=== PATIENT | male | born 1990 | race Caucasian/White ===

== ENCOUNTER 2018-04-25 05:23 | Inpatient (IN) | payer OTHER ==
[2018-04-25] MEDS ORDERED: ONDANSETRON 4 MG INJ IV (07:30)
[2018-04-25] MEDS ORDERED: ACETAMINOPHEN 325 MG TAB PO (07:30)
[2018-04-25] MEDS: CEFTRIAXONE 1 GM/50 ML (PMX) 50 ML IVPB (08:29)
[2018-04-25] MEDS: PANTOPRAZOLE 40 MG INJ IV (08:29)
[2018-04-25] MEDS: DEXTROSE 5%-0.45% NACL 1,000 ML IV (08:29)
[2018-04-25 11:39] LABS: ADD MAN DIFF? NO
[2018-04-25 11:43] LABS: WHITE BLOOD COUNT 11.4 10^3/ul (4.8-10.8)
[2018-04-25 11:43] LABS: BASOPHIL # 0.1 10^3/ul (0.0-0.1); BASOPHILS % 0.4 % (0.0-2.0); EOSINOPHILS # 0.2 10^3/ul (0.0-0.5); EOSINOPHILS % 1.9 % (0.0-7.0); HEMATOCRIT 42.6 % (42.0-52.0); LYMPHOCYTES % 26.8 % (15.0-51.0); MEAN CORPUSCULAR HEMOGLOBIN 28.1 pg (29.0-33.0); MEAN CORPUSCULAR HGB CONC 32.9 g/dl (32.0-37.0); MEAN CORPUSCULAR VOLUME 85.5 fl (82.0-101.0); MEAN PLATELET VOLUME 9.5 fl (7.4-10.4); MONOCYTE # 0.7 10^3/ul (0.3-0.9); MONOCYTES % 6.1 % (0.0-11.0); NEUTROPHIL # 7.3 10^3/ul (1.6-7.5); NEUTROPHILS % 64.6 % (39.0-77.0); PLATELET COUNT 264 10^3/UL (140-415); RED BLOOD COUNT 4.98 10^6/ul (4.70-6.10); RED CELL DISTRIBUTION WIDTH 13.5 % (11.5-14.5)
[2018-04-25 12:05] LABS: ANION GAP 11 (8-16); BLOOD UREA NITROGEN 5 mg/dl (7-20); CALCIUM 9.1 mg/dl (8.4-10.2); CARBON DIOXIDE 29 mmol/L (21-31); CHLORIDE 102 mmol/L (97-110); CREATININE 0.74 mg/dl (0.61-1.24); GLUCOSE 89 mg/dl (70-220); POTASSIUM 4.3 mmol/L (3.5-5.1); SODIUM 138 mmol/L (135-144)
[2018-04-25 15:30] LABS: PROTIME 12.2 Sec (11.9-14.9)
[2018-04-25 15:33] LABS: ALANINE AMINOTRANSFERASE 56 IU/L (13-69); ALBUMIN 4.3 g/dl (3.3-4.9); ALKALINE PHOSPHATASE 113 IU/L (42-121); ASPARTATE AMINO TRANSFERASE 25 IU/L (15-46); BILIRUBIN,INDIRECT 0.3 mg/dl (0-1.1); BILIRUBIN,TOTAL 0.3 mg/dl (0.2-1.3); TOTAL PROTEIN 7.7 g/dl (6.1-8.1)
[2018-04-25] MEDS ORDERED: FENTAnyl 50 MCG/ML VIAL ×2 (20:19→21:33)
[2018-04-25] MEDS ORDERED: ROPIVACAINE 0.5 % 30 ML VIAL (20:20)
[2018-04-25] MEDS ORDERED: HYDROmorphONE 1 MG/5 ML IV SYRINGE IV ×2 (20:30→21:54)
[2018-04-25] MEDS ORDERED: ALBUTEROL 0.083% (NEB) 2.5 MG/3 ML AMP HHN (20:30)
[2018-04-25] MEDS ORDERED: METOCLOPRAMIDE 10 MG INJ IV (20:30)
[2018-04-25] MEDS ORDERED: FENTAnyl 50 MCG/ML VIAL IV ×2 (20:30)
[2018-04-25] MEDS ORDERED: LIDOCAINE 100 MG SYRINGE (20:53)
[2018-04-25] MEDS ORDERED: ROCURONIUM 50 MG INJ (20:53)
[2018-04-25] MEDS ORDERED: SUGAMMADEX SODIUM 200 MG/2 ML VIAL IV (20:53)
[2018-04-25] MEDS ORDERED: PROPOFOL 20 ML (20:53)
[2018-04-25] MEDS ORDERED: SUCCINYLCHOLINE CHLORIDE 100 MG/5 ML SYG IV (20:53)
[2018-04-25] MEDS ORDERED: MEPERIDINE 25 MG INJ (21:54)
[2018-04-25] MEDS ORDERED: HYDROCODONE/APAP (5/325) TAB PO (22:00)
[2018-04-25 22:19] LABS: WHITE BLOOD COUNT 20.1 10^3/ul (4.8-10.8)
[2018-04-25 22:19] LABS: ADD MAN DIFF? NO; BASOPHIL # 0.1 10^3/ul (0.0-0.1); BASOPHILS % 0.2 % (0.0-2.0); EOSINOPHILS # 0.1 10^3/ul (0.0-0.5); EOSINOPHILS % 0.6 % (0.0-7.0); HEMOGLOBIN 14.1 g/dl (14.0-18.0); LYMPHOCYTES # 2.6 10^3/ul (0.8-2.9); LYMPHOCYTES % 12.7 % (15.0-51.0); MEAN CORPUSCULAR HEMOGLOBIN 29.3 pg (29.0-33.0); MEAN CORPUSCULAR HGB CONC 33.6 g/dl (32.0-37.0); MEAN CORPUSCULAR VOLUME 87.3 fl (82.0-101.0); MEAN PLATELET VOLUME 9.2 fl (7.4-10.4); MONOCYTE # 0.7 10^3/ul (0.3-0.9); MONOCYTES % 3.4 % (0.0-11.0); NEUTROPHIL # 16.5 10^3/ul (1.6-7.5); NEUTROPHILS % 82.4 % (39.0-77.0); PLATELET COUNT 250 10^3/UL (140-415); RED BLOOD COUNT 4.81 10^6/ul (4.70-6.10); RED CELL DISTRIBUTION WIDTH 13.3 % (11.5-14.5)
[2018-04-25] MEDS: ONDANSETRON 4 MG INJ IV (22:22)
[2018-04-25] MEDS: MEPERIDINE 25 MG INJ IV (22:22)
[2018-04-25] MEDS: HYDROmorphONE 1 MG/5 ML IV SYRINGE IV ×2 (22:22→22:37)
[2018-04-25] MEDS: DIPHENHYDRAMINE 50 MG INJ IV (22:27)
[2018-04-26] MEDS: morphine 2 MG INJ IV ×2 (02:49→11:58)
[2018-04-26] MEDS: DEXTROSE 5%-0.45% NACL 1,000 ML IV ×2 (03:33→08:28)
[2018-04-26 05:55] LABS: ADD MAN DIFF? NO
[2018-04-26 06:07] LABS: WHITE BLOOD COUNT 15.6 10^3/ul (4.8-10.8)
[2018-04-26 06:07] LABS: BASOPHILS % 0.3 % (0.0-2.0); EOSINOPHILS % 0.3 % (0.0-7.0); HEMATOCRIT 42.3 % (42.0-52.0); HEMOGLOBIN 14.1 g/dl (14.0-18.0); LYMPHOCYTES # 2.1 10^3/ul (0.8-2.9); LYMPHOCYTES % 13.4 % (15.0-51.0); MEAN CORPUSCULAR HEMOGLOBIN 28.5 pg (29.0-33.0); MEAN CORPUSCULAR HGB CONC 33.3 g/dl (32.0-37.0); MEAN CORPUSCULAR VOLUME 85.5 fl (82.0-101.0); MEAN PLATELET VOLUME 9.7 fl (7.4-10.4); MONOCYTE # 0.7 10^3/ul (0.3-0.9); MONOCYTES % 4.6 % (0.0-11.0); NEUTROPHIL # 12.6 10^3/ul (1.6-7.5); PLATELET COUNT 291 10^3/UL (140-415); RED BLOOD COUNT 4.95 10^6/ul (4.70-6.10); RED CELL DISTRIBUTION WIDTH 13.5 % (11.5-14.5)
[2018-04-26 06:35] LABS: MAGNESIUM 1.9 mg/dl (1.7-2.5)
[2018-04-26 06:35] LABS: PHOSPHORUS 4.3 mg/dl (2.5-4.9)
[2018-04-26 06:57] LABS: ALANINE AMINOTRANSFERASE 73 IU/L (13-69); ALBUMIN 4.1 g/dl (3.3-4.9); ALBUMIN/GLOBULIN RATIO 1.17; ALKALINE PHOSPHATASE 112 IU/L (42-121); ANION GAP 15 (8-16); ASPARTATE AMINO TRANSFERASE 59 IU/L (15-46); BILIRUBIN,INDIRECT 0.5 mg/dl (0-1.1); BILIRUBIN,TOTAL 0.5 mg/dl (0.2-1.3); BLOOD UREA NITROGEN 6 mg/dl (7-20); CALCIUM 8.7 mg/dl (8.4-10.2); CARBON DIOXIDE 28 mmol/L (21-31); CHLORIDE 101 mmol/L (97-110); CREATININE 0.76 mg/dl (0.61-1.24); GLUCOSE 92 mg/dl (70-220); POTASSIUM 4.3 mmol/L (3.5-5.1); SODIUM 140 mmol/L (135-144); TOTAL PROTEIN 7.6 g/dl (6.1-8.1)
[2018-04-26] MEDS: PANTOPRAZOLE 40 MG INJ IV (08:28)
[2018-04-26] MEDS: BISACODYL (EC) 5 MG TAB PO (14:26)
[2018-04-26] MEDS ORDERED: morphine LIQ (10 MG/5 ML) CUP PO (15:00)
[2018-04-26] MEDS: HYDROCODONE/APAP (5/325) TAB PO (16:05)
[2018-04-27] MEDS ORDERED: PANTOPRAZOLE (EC) 40 MG TAB PO (06:00)
== END 2018-04-26 17:22 | disposition home or self-care (01) | DRG 418 ==
LOC: MS1 05:23 → 6WM 21:48
PROC: 0FT44ZZ Resection of Gallbladder, Percutaneous Endoscopic Approach (ICD-10-PCS; principal; 2018-04-25 19:00)
DX: K81.0 Acute cholecystitis (principal); Z68.41 Body mass index [BMI] 40.0-44.9, adult; E66.9 Obesity, unspecified; D72.829 Elevated white blood cell count, unspecified; K81.1 Chronic cholecystitis
CPT/HCPCS: 71045; 76705; 80048; 80053; 80076; 83735; 84100; 85025; 85610; 87081; 88304; 93005

== ENCOUNTER 2018-07-22 06:58 | Observation (INO) | payer OTHER ==
[~2018-07-22 06:58] MED LIST: CEFAZOLIN 2 GM/50 ML (PMX) 50 ML IVPB
[2018-07-22] MEDS ORDERED: ROCURONIUM 50 MG INJ ×2 (07:00→12:38)
[2018-07-22] MEDS ORDERED: LIDOCAINE 1% (STERILE-PAK) 30 ML INJ (08:47)
[2018-07-22] MEDS ORDERED: BUPIVACAINE 0.25%/EPI (SDV) 30 ML INJ (08:47)
[2018-07-22] MEDS ORDERED: ALBUTEROL 0.083% (NEB) 2.5 MG/3 ML AMP HHN (09:00)
[2018-07-22] MEDS ORDERED: DIPHENHYDRAMINE 50 MG INJ IV (09:00)
[2018-07-22] MEDS ORDERED: METOCLOPRAMIDE 10 MG INJ IV (09:00)
[2018-07-22] MEDS ORDERED: FENTAnyl 50 MCG/ML VIAL IV ×3 (09:00)
[2018-07-22] MEDS ORDERED: OXYCODONE/ACETAMINOPHEN (5/325) TAB PO ×2 (09:00→16:25)
[2018-07-22] MEDS ORDERED: HYDROmorphONE 1 MG/5 ML IV SYRINGE IV ×2 (09:00)
[2018-07-22] MEDS ORDERED: FENTAnyl 50 MCG/ML VIAL ×4 (09:31→12:41)
[2018-07-22] MEDS ORDERED: ROPIVACAINE 0.5 % 30 ML VIAL (09:32)
[2018-07-22] MEDS ORDERED: FAMOTIDINE 20 MG INJ (10:31)
[2018-07-22] MEDS: POLYMYXIN/BACITRACIN 1L IRRIG (11:14)
[2018-07-22] MEDS ORDERED: SUCCINYLCHOLINE CHLORIDE 100 MG/5 ML SYG IV (12:38)
[2018-07-22] MEDS ORDERED: CEFAZOLIN 1 GM INJ (12:38)
[2018-07-22] MEDS ORDERED: LIDOCAINE 100 MG SYRINGE (12:38)
[2018-07-22] MEDS ORDERED: SUGAMMADEX SODIUM 200 MG/2 ML VIAL IV (12:38)
[2018-07-22] MEDS ORDERED: PROPOFOL 20 ML (12:38)
[2018-07-22] MEDS: MEPERIDINE 25 MG INJ IV (13:15)
[2018-07-22] MEDS: HYDROmorphONE 1 MG/5 ML IV SYRINGE IV (13:15)
[2018-07-22] MEDS: ONDANSETRON 4 MG INJ IV (13:15)
[2018-07-22] MEDS ORDERED: HYDROCODONE/APAP (5/325) TAB PO ×2 (13:30)
[2018-07-22] MEDS: SOD CHLORIDE 0.9% 1,000 ML IV (14:03)
[2018-07-22] MEDS ORDERED: ONDANSETRON 4 MG INJ IV (14:30)
[2018-07-22] MEDS ORDERED: ACETAMINOPHEN 325 MG TAB PO (14:30)
[2018-07-22] MEDS ORDERED: ZOLPIDEM 5 MG TAB PO (14:30)
[2018-07-22] MEDS ORDERED: NACL 0.9% 3 ML SYG IV (14:30)
[2018-07-22] MEDS ORDERED: DOCUSATE SODIUM 100 MG CAP PO (14:30)
[2018-07-22] MEDS: OXYCODONE/ACETAMINOPHEN (5/325) TAB PO ×2 (16:59→21:41)
[2018-07-22 19:35] LABS: ADD MAN DIFF? NO
[2018-07-22 19:37] LABS: BASOPHILS % 0.2 % (0.0-2.0); HEMATOCRIT 40.7 % (42.0-52.0); HEMOGLOBIN 13.2 g/dl (14.0-18.0); LYMPHOCYTES # 1.6 10^3/ul (0.8-2.9); LYMPHOCYTES % 10.8 % (15.0-51.0); MEAN CORPUSCULAR HEMOGLOBIN 28.3 pg (29.0-33.0); MEAN CORPUSCULAR HGB CONC 32.4 g/dl (32.0-37.0); MEAN CORPUSCULAR VOLUME 87.3 fl (82.0-101.0); MEAN PLATELET VOLUME 9.4 fl (7.4-10.4); MONOCYTE # 0.9 10^3/ul (0.3-0.9); MONOCYTES % 6.3 % (0.0-11.0); NEUTROPHIL # 12.1 10^3/ul (1.6-7.5); NEUTROPHILS % 82.2 % (39.0-77.0); PLATELET COUNT 268 10^3/UL (140-415); RED BLOOD COUNT 4.66 10^6/ul (4.70-6.10); RED CELL DISTRIBUTION WIDTH 13.9 % (11.5-14.5)
[2018-07-22 19:37] LABS: WHITE BLOOD COUNT 14.7 10^3/ul (4.8-10.8)
[2018-07-23 05:13] LABS: WHITE BLOOD COUNT 11.9 10^3/ul (4.8-10.8)
[2018-07-23 05:13] LABS: ADD MAN DIFF? NO; BASOPHILS % 0.2 % (0.0-2.0); EOSINOPHILS # 0.1 10^3/ul (0.0-0.5); EOSINOPHILS % 0.5 % (0.0-7.0); HEMOGLOBIN 12.8 g/dl (14.0-18.0); LYMPHOCYTES # 2.8 10^3/ul (0.8-2.9); LYMPHOCYTES % 23.6 % (15.0-51.0); MEAN CORPUSCULAR HEMOGLOBIN 28.1 pg (29.0-33.0); MEAN CORPUSCULAR VOLUME 87.7 fl (82.0-101.0); MEAN PLATELET VOLUME 9.6 fl (7.4-10.4); MONOCYTE # 1.1 10^3/ul (0.3-0.9); MONOCYTES % 9.4 % (0.0-11.0); NEUTROPHIL # 7.8 10^3/ul (1.6-7.5); PLATELET COUNT 250 10^3/UL (140-415); RED BLOOD COUNT 4.56 10^6/ul (4.70-6.10); RED CELL DISTRIBUTION WIDTH 14.1 % (11.5-14.5)
[2018-07-23] MEDS: PANTOPRAZOLE (EC) 40 MG TAB PO (05:25)
[2018-07-23 05:51] LABS: ANION GAP 7 (5-13); BLOOD UREA NITROGEN 8 mg/dl (7-20); CALCIUM 8.1 mg/dl (8.4-10.2); CARBON DIOXIDE 26 mmol/L (21-31); CHLORIDE 105 mmol/L (97-110); CREATININE 0.69 mg/dl (0.61-1.24); Estimated GFR > 60 mL/min (>60); GLUCOSE 98 mg/dl (70-220); POTASSIUM 4.1 mmol/L (3.5-5.1); SODIUM 138 mmol/L (135-144)
[2018-07-23] MEDS: OXYCODONE/ACETAMINOPHEN (5/325) TAB PO ×2 (08:05→13:13)
== END 2018-07-23 13:44 | disposition home or self-care (01) ==
LOC: SDS 06:58 → REC 14:05 → MS1 14:47
PROVIDERS: Surgery Surgical Critical Care
DX: K40.30 Unilateral inguinal hernia, with obstruction, without gangrene, not specified as recurrent (principal); E66.01 Morbid (severe) obesity due to excess calories; Z68.41 Body mass index [BMI] 40.0-44.9, adult
CPT/HCPCS: 49507; 80048; 85025; 97161